=== PATIENT | female | born 1965 | race American Indian/Alaskan Native ===

== ENCOUNTER 2019-05-10 21:15 | Emergency (ER) | payer OTHER ==
[2019-05-10 21:27] VITALS: BP 134/67
--- NOTE | 2019-05-10 21:27 | Event Note ---
ED Screening Note ED Screening Note: CO UPPER AND LOWER DENTAL PAIN AFTER A DEEP CLEAN 2 DAYS AGO SHARP SHOOTING PAIN NO ABSCESS This initial assessment/diagnostic orders/clinical plan/treatment(s) is/are subject to change based on patients health status, clinical progression and re- assessment by fellow clinical providers in the ED. Further treatment and workup at subsequent clinical providers discretion. Patient/guardian urged not to elope from the ED as their condition may be serious if not clinically assessed and managed. Initial orders include:
[2019-05-10] MEDS ORDERED: TORADOL IM ONE (21:30)
[2019-05-10] MEDS ORDERED: PERCOCET 5/325 PO ONE (22:11)
--- NOTE | 2019-05-10 22:33 | Emergency Department Report ---
ED General Adult HPI - General Chief complaint: Dental/Oral Stated complaint: TOOTHACHE Time Seen by Provider: 05/10/19 21:26 Source: patient Mode of arrival: Ambulatory Limitations: No Limitations - History of Present Illness Initial comments: Patient is a 53-year-old -[place] female who presents to the ED with complaint of acute onset of persistent painful swelling right maxillary premolar counts and premolar and molar toothaches for the last 3 days after having a dental procedure 4 days ago. Patient states that she's been taking over-the- counter medications for pain with no relief. Patient denies rheumatic injury, sore throat, nausea, vomiting, nasal and sinus congestion, ear pain, dizziness, headache, fever or chills, chest pain or shortness of breath. MD Complaint: Swollen gums; Dental pain -: Sudden, days(s) (3) Location: mouth Radiation: non-radiation Severity scale (0 -10): 8 Quality: aching, sharp Consistency: constant Improves with: none Worsens with: none Associated Symptoms: denies other symptoms, loss of appetite. denies: confusion, chest pain, cough, diaphoresis, fever/chills, headaches, malaise, nausea/vomiting, rash, seizure, shortness of breath, syncope, weakness Treatments Prior to Arrival: NSAID - Related Data Previous Rx's Medication Instructions Recorded Last Taken Type Amoxicillin/Potassium Clav 1 each PO Q12H #20 tablet 05/10/19 Unknown Rx [Augmentin 875-125 Tablet] Ketorolac [Toradol] 10 mg PO Q8H PRN #20 tablet 05/10/19 Unknown Rx traMADol [Ultram] 50 mg PO Q6HR PRN #15 tablet 05/10/19 Unknown Rx Allergies Allergy/AdvReac Type Severity Reaction Status Date / Time No Known Allergies Allergy Unverified 05/10/19 21:17 ED Review of Systems ROS: Stated complaint: TOOTHACHE Other details as noted in HPI Constitutional: denies: chills, fever Eyes: denies: eye pain, eye discharge, vision change ENT: dental pain, other (swollen painful gums). denies: ear pain, throat pain Respiratory: denies: cough, shortness of breath, wheezing Cardiovascular: denies: chest pain, palpitations Endocrine: no symptoms reported Gastrointestinal: denies: abdominal pain, nausea, diarrhea Genitourinary: denies: urgency, dysuria, discharge Musculoskeletal: denies: back pain, joint swelling, arthralgia Skin: denies: rash, lesions Neurological: denies: headache, weakness, paresthesias Psychiatric: denies: anxiety, depression Hematological/Lymphatic: denies: easy bleeding, easy bruising ED Past Medical Hx - Past Medical History Previous Medical History?: No - Surgical History Past Surgical History?: No - Social History Smoking Status: Never Smoker Substance Use Type: None - Medications Home Medications: Home Medications Medication Instructions Recorded Confirmed Last Taken Type Amoxicillin/Potassium Clav 1 each PO Q12H #20 tablet 05/10/19 Unknown Rx [Augmentin 875-125 Tablet] Ketorolac [Toradol] 10 mg PO Q8H PRN #20 tablet 05/10/19 Unknown Rx traMADol [Ultram] 50 mg PO Q6HR PRN #15 tablet 05/10/19 Unknown Rx ED Physical Exam - General Limitations: No Limitations General appearance: alert, in no apparent distress - Head Head exam: Present: atraumatic, normocephalic, normal inspection - Eye Eye exam: Present: normal appearance, PERRL, EOMI. Absent: scleral icterus, conjunctival injection, nystagmus, periorbital swelling, periorbital tenderness Pupils: Present: normal accommodation - ENT ENT exam: Present: normal exam, mucous membranes moist, TM's normal bilaterally, normal external ear exam, other (swollen right maxillary premolar gums, with premolar and molar teeth tenderness) - Neck Neck exam: Present: normal inspection, full ROM - Respiratory Respiratory exam: Present: normal lung sounds bilaterally. Absent: respiratory distress, wheezes, rales, rhonchi, chest wall tenderness, accessory muscle use, prolonged expiratory - Cardiovascular Cardiovascular Exam: Present: regular rate, normal rhythm, normal heart sounds. Absent: systolic murmur, diastolic murmur, rubs, gallop - GI/Abdominal GI/Abdominal exam: Present: soft, normal bowel sounds. Absent: tenderness, guarding, rebound, hyperactive bowel sounds, hypoactive bowel sounds, organomegaly, bruit, pulsatile mass - Rectal Rectal exam: Present: deferred - Extremities Exam Extremities exam: Present: normal inspection, full ROM, normal capillary refill - Back Exam Back exam: Present: normal inspection, full ROM. Absent: tenderness, CVA tenderness (R), CVA tenderness (L), muscle spasm, paraspinal tenderness, vertebral tenderness - Neurological Exam Neurological exam: Present: alert, oriented X3, CN II-XII intact, normal gait, reflexes normal - Psychiatric Psychiatric exam: Present: normal affect, normal mood - Skin Skin exam: Present: warm, dry, intact, normal color. Absent: rash ED Course Vital Signs 05/10/19 05/10/19 05/10/19 21:25 21:51 22:19 Temperature 98 F Pulse Rate 91 H Respiratory 16 16 16 Rate Blood Pressure 134/67 O2 Sat by Pulse 97 Oximetry - Reevaluation(s) Reevaluation #1: 05/10/19 22:38 Patient is alert and oriented 3 and is not in distress with normal vital signs. Patient was treated for pain in the ED and discharged home on pain medications and prophylactic antibiotics, and advised to follow-up with her primary care physician and her dentist in 5-7 days for reevaluation. Patient was advised to return to the ED immediately if symptoms get worse. ED Medical Decision Making - Medical Decision Making Patient is alert and oriented 3 and is not in distress with normal vital signs. Patient was treated for pain in the ED and discharged home on pain medications and prophylactic antibiotics, and advised to follow-up with her primary care physician and her dentist in 5-7 days for reevaluation. Patient was advised to return to the ED immediately if symptoms get worse. - Differential Diagnosis dental abscess; gingivitis, dental caries Critical care attestation.: If time is entered above; I have spent that time in minutes in the direct care of this critically ill patient, excluding procedure time. ED Disposition Clinical Impression: Acute gingivitis, Dental caries Disposition: TO HOME OR SELFCARE Is pt being admited?: No Does the pt Need Aspirin: No Condition: Stable Instructions: Dental Caries (ED), Gingivitis (ED) Additional Instructions: Take medications with food, drink plenty of fluids and follow-up with your dentist in 5-7 days for reevaluation. Return to the ED immediately if symptoms get worse. Prescriptions: Amoxicillin/Potassium Clav [Augmentin 875-125 Tablet] 1 each PO Q12H #20 tablet Ketorolac [Toradol] 10 mg PO Q8H PRN #20 tablet PRN Reason: Pain traMADol [Ultram] 50 mg PO Q6HR PRN #15 tablet PRN Reason: Pain Referrals: ARNAUD WILLETT [Other] - 3-5 Days Time of Disposition: 22:30 Print Language: ROMANIAN
== END 2019-05-10 22:37 | disposition home or self-care (01) ==
LOC: ED 21:15
DX: K05.00 Acute gingivitis, plaque induced (principal); K02.9 Dental caries, unspecified
CPT/HCPCS: 96372; 99282; J1885